=== PATIENT | female | born 1955 | race African-American/Black ===

== ENCOUNTER 2018-08-24 12:34 | Emergency (ER) | payer MEDICAID ==
[~2018-08-24] VITALS: Ht 167.6 cm; Wt 81.0 kg
[~2018-08-24 12:34] MED LIST: AMLO2.5T45 PO; HYDR12.529 PO
[2018-08-24 12:42] VITALS: BP 183/121
== END 2018-08-24 19:33 | disposition left against medical advice (07) ==
LOC: ER 12:34
DX: I10 Essential (primary) hypertension (principal); Z53.21 Procedure and treatment not carried out due to patient leaving prior to being seen by health care provider

== ENCOUNTER 2020-02-15 14:51 | Emergency (ER) | payer BC, MEDICAID ==
[~2020-02-15] VITALS: Ht 167.6 cm; Wt 82.0 kg
[2020-02-15 15:10] VITALS: BP 148/96
[2020-02-15] MEDS ORDERED: NAPROXEN 250MG TABLET PO ONE (16:30)
== END 2020-02-15 16:53 | disposition home or self-care (01) ==
LOC: ER 14:51
DX: R22.42 Localized swelling, mass and lump, left lower limb (principal); I10 Essential (primary) hypertension; Z88.0 Allergy status to penicillin
CPT/HCPCS: 99282

== ENCOUNTER 2020-05-28 12:04 | Emergency (ER) | payer BC, MEDICAID ==
[~2020-05-28] VITALS: Ht 167.6 cm; Wt 75.0 kg
[2020-05-28] MEDS ORDERED: AMLODIPINE 5MG TABLET PO ONE (13:15)
[2020-05-28 13:56] VITALS: BP 179/114
== END 2020-05-28 13:58 | disposition home or self-care (01) ==
LOC: ER 12:04
DX: I16.0 Hypertensive urgency (principal); E78.00 Pure hypercholesterolemia, unspecified; Z88.0 Allergy status to penicillin
CPT/HCPCS: 93005; 99283

== ENCOUNTER 2021-07-30 11:33 | Emergency (ER) | payer BC, MEDICAID ==
[~2021-07-30] VITALS: Ht 167.6 cm; Wt 80.0 kg
[2021-07-30] MEDS ORDERED: KETOROLAC 60MG/2ML VIAL IM STA (11:44)
[2021-07-30 11:45] VITALS: BP 171/94
[2021-07-30 12:06] LABS: CLARITY URINE CLEAR (CLEAR); COLOR URINE YELLOW (YELLOW); KETONES URINE TRACE (NEGATIVE); LEUKOCYTE ESTERASE URINE 2+ (NEGATIVE); NITRITE URINE NEGATIVE (NEGATIVE); OCCULT BLOOD URINE NEGATIVE (NEGATIVE); PH URINE 6.5 (4.5-8.0); PROTEIN URINE NEGATIVE (NEGATIVE); SPECIFIC GRAVITY URINE 1.022 (1.005-1.030)
[2021-07-30 14:54] LABS: BASOPHILS % 1.1 % (0.0-2.0); EOSINOPHILS % 3.2 % (0.0-5.0); LYMPHOCYTES % 22.6 % (20.0-50.0); MEAN CORPUSCULAR HEMOGLOBIN 30.4 pg (28.0-32.0); MEAN CORPUSCULAR VOLUME 86.3 fL (81.0-99.0); MEAN PLATELET VOLUME 9.4 fl (7.4-10.4); MONOCYTES % 6.3 % (2.0-8.0); NEUTROPHILS % 66.8 % (40.0-76.0); PLATELET 263 x1000/uL (130-400); RED BLOOD CELL COUNT 4.29 mill/uL (4.2-5.4); RED CELL DISTRIBUTION WIDTH 12.8 % (11.6-14.6)
[2021-07-30 14:59] LABS: CHLORIDE 108 mEq/L (98-107)
[2021-07-30] MEDS ORDERED: NITR100C MT (15:58)
== END 2021-07-30 16:18 | disposition home or self-care (01) ==
LOC: ER 11:33
DX: N39.0 Urinary tract infection, site not specified (principal); E78.00 Pure hypercholesterolemia, unspecified; I10 Essential (primary) hypertension; Z88.0 Allergy status to penicillin
CPT/HCPCS: 36415; 71045; 80053; 81003; 85025; 99284

== ENCOUNTER 2022-01-04 16:38 | Emergency (ER) | payer BC, MEDICAID ==
[~2022-01-04] VITALS: Ht 167.6 cm; Wt 86.0 kg
[~2022-01-04 16:38] MED LIST changes: +NITR100C MT
[2022-01-04 16:44] VITALS: BP 162/84
[2022-01-04] MEDS ORDERED: CARB-173 EACH EAR (18:47)
[2022-01-04] MEDS ORDERED: CYCL10TA21 MT (18:47)
== END 2022-01-04 19:03 | disposition home or self-care (01) ==
LOC: ER 16:38
DX: H61.22 Impacted cerumen, left ear (principal); M62.838 Other muscle spasm; I10 Essential (primary) hypertension; E78.00 Pure hypercholesterolemia, unspecified; Z88.0 Allergy status to penicillin; Z98.890 Other specified postprocedural states
CPT/HCPCS: 99283

== ENCOUNTER 2022-12-12 08:25 | Emergency (ER) | payer BC, MEDICAID ==
[~2022-12-12] VITALS: Ht 167.6 cm; Wt 74.0 kg
[~2022-12-12 08:25] MED LIST changes: +CARB-173 EACH EAR; +CYCL10TA21 MT
[2022-12-12 08:31] VITALS: BP 143/120; PULSE 57; RESP 20; TEMP 98.2; O2SAT 99
[2022-12-12 09:25] LABS: CLARITY URINE CLEAR (CLEAR); COLOR URINE YELLOW (YELLOW); GLUCOSE URINE NEGATIVE (NEGATIVE); KETONES URINE NEGATIVE (NEGATIVE); LEUKOCYTE ESTERASE URINE NEGATIVE (NEGATIVE); NITRITE URINE NEGATIVE (NEGATIVE); OCCULT BLOOD URINE NEGATIVE (NEGATIVE); PROTEIN URINE TRACE (NEGATIVE)
[2022-12-12 09:28] LABS: WBC URINE 0-2 /hpf (0-2); YEAST URINE NONE SEEN
[2022-12-12 09:48] LABS: BACTERIA URINE FEW; SQUAMOUS EPITHELIAL CELL URINE FEW /lpf (RARE/1+)
== END 2022-12-12 10:00 | disposition home or self-care (01) ==
LOC: ER 08:37
DX: R31.9 Hematuria, unspecified (principal); E78.5 Hyperlipidemia, unspecified; I10 Essential (primary) hypertension; E78.00 Pure hypercholesterolemia, unspecified; Z88.0 Allergy status to penicillin
CPT/HCPCS: 81003; 99283

== ENCOUNTER 2023-01-27 10:41 | Emergency (ER) | payer BC, MEDICAID ==
[~2023-01-27] VITALS: Ht 167.6 cm; Wt 82.0 kg
[2023-01-27 10:51] VITALS: O2SAT 98
[2023-01-27 12:55] LABS: CLARITY URINE CLOUDY (CLEAR); COLOR URINE DARK YELLOW (YELLOW); GLUCOSE URINE NEGATIVE (NEGATIVE); KETONES URINE NEGATIVE (NEGATIVE); LEUKOCYTE ESTERASE URINE TRACE (NEGATIVE); NITRITE URINE NEGATIVE (NEGATIVE); OCCULT BLOOD URINE 3+ (NEGATIVE); PH URINE 5.5 (4.5-8.0); PROTEIN URINE 1+ (NEGATIVE); SPECIFIC GRAVITY URINE 1.022 (1.005-1.030)
[2023-01-27 13:22] LABS: MUCUS URINE 1+ /lpf (< = 2+)
[2023-01-27 13:23] LABS: RBC URINE 15-25 /hpf (0-2)
[2023-01-27 13:24] LABS: BACTERIA URINE 1+; SQUAMOUS EPITHELIAL CELL URINE 1+ /lpf (RARE/1+)
[2023-01-27 13:27] LABS: WBC URINE 0-2 /hpf (0-2)
[2023-01-27 14:55] VITALS: BP 138/94; PULSE 68; RESP 16; TEMP 98.9
== END 2023-01-27 15:25 | disposition home or self-care (01) ==
LOC: ER 11:02
DX: N32.89 Other specified disorders of bladder (principal); N93.8 Other specified abnormal uterine and vaginal bleeding; M06.9 Rheumatoid arthritis, unspecified; E78.00 Pure hypercholesterolemia, unspecified; I10 Essential (primary) hypertension; Z98.890 Other specified postprocedural states
CPT/HCPCS: 76830; 76856; 81003; 99284

== ENCOUNTER 2023-06-03 14:25 | Emergency (ER) | payer BC, MEDICAID ==
[~2023-06-03] VITALS: Ht 167.6 cm; Wt 91.0 kg
[2023-06-03 14:33] VITALS: BP 175/91; PULSE 71; RESP 16; TEMP 98.2; O2SAT 99
== END 2023-06-03 17:05 | disposition left against medical advice (07) ==
LOC: ER 14:27
DX: Z76.89 Persons encountering health services in other specified circumstances (principal); Z53.21 Procedure and treatment not carried out due to patient leaving prior to being seen by health care provider

== ENCOUNTER 2023-08-06 11:22 | Emergency (ER) | payer BC ==
[~2023-08-06] VITALS: Ht 167.6 cm; Wt 91.0 kg
[~2023-08-06 11:22] MED LIST changes: -CARB-173 EACH EAR; +DEBROX EACH EAR
[2023-08-06 11:47] VITALS: O2SAT 98
[2023-08-06] MEDS: IBUPROFEN 600MG TABLET PO STA (13:41)
[2023-08-06] MEDS ORDERED: NAPR-681 PO (13:46)
[2023-08-06 14:27] VITALS: BP 156/97; PULSE 61; RESP 18; TEMP 98.7
== END 2023-08-06 15:23 | disposition home or self-care (01) ==
LOC: ER 11:22
DX: S40.011A Contusion of right shoulder, initial encounter (principal); M25.511 Pain in right shoulder; X58.XXXA Exposure to other specified factors, initial encounter; Y93.89 Activity, other specified; Y92.89 Other specified places as the place of occurrence of the external cause; Y99.8 Other external cause status
CPT/HCPCS: 73030; 73060; 99284; A4565

== ENCOUNTER 2024-05-08 16:45 | Emergency (ER) | payer BC ==
[~2024-05-08] VITALS: Ht 167.6 cm; Wt 82.0 kg
[~2024-05-08 16:45] MED LIST changes: +NAPR-681 PO
[2024-05-08 17:08] VITALS: BP 131/94; PULSE 97; RESP 18; TEMP 97.9; O2SAT 95; O2SAT 99
== END 2024-05-08 18:38 | disposition home or self-care (01) ==
LOC: ER 16:45
DX: R07.89 Other chest pain (principal); Z53.21 Procedure and treatment not carried out due to patient leaving prior to being seen by health care provider
CPT/HCPCS: 71045; 93005; 99283

== ENCOUNTER 2024-12-22 11:50 | Emergency (ER) | payer BC, MEDICAID ==
[~2024-12-22] VITALS: Ht 167.6 cm; Wt 81.6 kg
[2024-12-22 11:51] VITALS: O2SAT 96
[2024-12-22 12:20] VITALS: BP 167/94; PULSE 82; RESP 16; TEMP 36.7; O2SAT 98
== END 2024-12-22 13:29 | disposition left against medical advice (07) ==
LOC: ER 11:50
DX: I10 Essential (primary) hypertension (principal); Z53.21 Procedure and treatment not carried out due to patient leaving prior to being seen by health care provider

== ENCOUNTER 2025-02-09 10:24 | Emergency (ER) | payer BC, MEDICAID ==
[~2025-02-09] VITALS: Ht 162.6 cm; Wt 82.0 kg
[~2025-02-09 10:24] MED LIST changes: +CARB15DR20 EACH EAR; -DEBROX EACH EAR
[2025-02-09 10:31] VITALS: BP 191/97; TEMP 36.8; O2SAT 100
[2025-02-09 10:34] VITALS: PULSE 96; RESP 18; O2SAT 96
== END 2025-02-09 12:11 | disposition home or self-care (01) ==
LOC: ER 10:24
DX: R41.0 Disorientation, unspecified (principal); E78.00 Pure hypercholesterolemia, unspecified; I10 Essential (primary) hypertension; Z88.0 Allergy status to penicillin
CPT/HCPCS: 99282

== ENCOUNTER 2025-03-21 08:21 | Emergency (ER) | payer BC, MEDICAID ==
[~2025-03-21] VITALS: Ht 167.6 cm; Wt 82.0 kg
[2025-03-21 09:07] VITALS: TEMP 36.8; O2SAT 99
[2025-03-21] MEDS ORDERED: HYDR-4001 MT (10:11)
[2025-03-21] MEDS ORDERED: IBUP-1455 MT (10:11)
[2025-03-21] MEDS: KETOROLAC 30MG/ML VIAL IM ONE (10:42)
[2025-03-21 10:47] VITALS: BP 148/94; PULSE 72; RESP 14; O2SAT 100
== END 2025-03-21 10:51 | disposition home or self-care (01) ==
LOC: ER 10:14
DX: G89.29 Other chronic pain (principal); M25.511 Pain in right shoulder; I10 Essential (primary) hypertension; E78.00 Pure hypercholesterolemia, unspecified; Z88.0 Allergy status to penicillin
CPT/HCPCS: 99283; 96372; J1885